=== PATIENT | female | born 1940 | race Caucasian/White ===

== ENCOUNTER → 2016-06-15 | Outpatient (CLI) | payer MEDICARE | LOC: RAD 13:05 | PROVIDERS: ATTEND Internal Medicine Hematology & Oncology | DX: C50.812 Malignant neoplasm of overlapping sites of left female breast (principal); Z78.0 Asymptomatic menopausal state | CPT/HCPCS: 77080 ==

== ENCOUNTER → 2016-06-22 | Outpatient (CLI) | payer MEDICARE ==
[2016-06-22 14:55] LABS: BASOPHILS % (AUTO) 0 % (0-2); EOSINOPHILS # (AUTO) 0.5 10^3uL; EOSINOPHILS % (AUTO) 6 % (0-4); LYMPHOCYTES # (AUTO) 1.7 X10^3; MEAN CORPUSCULAR HEMOGLOBIN 29.8 PG (26.0-34.0); MEAN CORPUSCULAR VOLUME 88 FL (80-100); MEAN PLATELET VOLUME 8.9 FL (6.0-9.5); MONOCYTES # (AUTO) 0.5 X10^3; MONOCYTES % (AUTO) 5 % (3-11); NEUTROPHILS # (AUTO) 5.7 X10^3; NEUTROPHILS % (AUTO) 68 % (51-67); PLATELET COUNT 259 10^3uL (150-450); WHITE BLOOD COUNT 8.38 10^3uL (4.0-11.0)
[2016-06-22 15:06] LABS: ALBUMIN 4.6 g/dL (3.4-5.0); ANION GAP 16.6 MEQ/L (3-15)
== END ==
LOC: LAB 14:40
PROVIDERS: ATTEND Internal Medicine Hematology & Oncology
DX: R13.10 Dysphagia, unspecified (principal); C50.812 Malignant neoplasm of overlapping sites of left female breast
CPT/HCPCS: 36415; 80053; 85025; 86300

== ENCOUNTER → 2016-06-30 | Outpatient (CLI) | payer MEDICARE | LOC: LAB 14:45 | PROVIDERS: ATTEND Internal Medicine Hematology & Oncology | DX: R05 Cough (principal) | CPT/HCPCS: 87486; 87581; 87633; 87798 ==

== ENCOUNTER → 2016-07-02 | Outpatient (CLI) | payer MEDICARE | LOC: RAD 09:19 | PROVIDERS: ATTEND Internal Medicine Hematology & Oncology | DX: C50.812 Malignant neoplasm of overlapping sites of left female breast (principal) | CPT/HCPCS: 78306; A9503 ==

== ENCOUNTER → 2016-07-09 | Outpatient (CLI) | payer MEDICARE | LOC: RAD 09:51 | PROVIDERS: ATTEND Internal Medicine Hematology & Oncology | DX: Z53.9 Procedure and treatment not carried out, unspecified reason (principal) ==

== ENCOUNTER → 2016-09-22 | Outpatient (CLI) | payer MEDICARE ==
[~2016-09-22] MED LIST: ALBU2.5V4 INH; AMOX875T2 PO; BUSP10TA95 PO; DICL100G13 TOP; EPIN0.3P2 IM; HYDR10TA13 PO; ISM30TCR PO; LANS30CA14 PO; LETR2.5T5 PO; LEVO75TA4 PO; LSRT50T PO; NITR0.4T7 SL; PRCD5U PO; SERT50TA PO; [UNRECOGNIZED DRUG - CODE] PO
[2016-09-22 13:17] LABS: MEAN CORPUSCULAR HEMOGLOBIN 30.5 PG (26.0-34.0); MEAN CORPUSCULAR HGB CONC 33.9 g/dL (31.0-37.0); MEAN CORPUSCULAR VOLUME 90 FL (80-100); MEAN PLATELET VOLUME 9.2 FL (6.0-9.5); PLATELET COUNT 243 10^3uL (150-450); WHITE BLOOD COUNT 9.29 10^3uL (4.0-11.0)
[2016-09-22 13:38] LABS: ALBUMIN 4.2 g/dL (3.4-5.0); ANION GAP 16.6 MEQ/L (3-15); CALCULATED IONIZED CALCIUM 4.2 mg/dL (3.8-4.6); MAGNESIUM* 1.9 mg/dL (1.6-2.3); TOTAL PROTEIN 7.1 g/dL (6.4-8.5)
[2016-09-22 13:53] LABS: BAND NEUTROPHILS % 0 % (0-6); EOSINOPHILS % 9 % (0-4); LYMPHOCYTES # 1.5 #; MONOCYTES # 0.3 #; MONOCYTES % 3 % (3-11); SEGMENTED NEUTROPHILS % 72 % (51-67); TOTAL CELLS COUNTED 100
[2016-09-22 13:54] LABS: RBC MORPH NORMAL (NORMAL)
== END ==
LOC: LAB 12:58
PROVIDERS: ATTEND Internal Medicine Hematology & Oncology
DX: C50.812 Malignant neoplasm of overlapping sites of left female breast (principal)
CPT/HCPCS: 36415; 80053; 82306; 83615; 83735; 84100; 85007; 85027